=== PATIENT | female | born 1940 ===

== ENCOUNTER 2018-09-06 09:57 | Outpatient (CLI) | payer OTHER | END 2018-09-06 09:58 | disposition home or self-care (01) | LOC: SONOGRAMA 09:57 | DX: E04.2 Nontoxic multinodular goiter (principal) ==

== ENCOUNTER 2018-11-17 08:53 | Outpatient (CLI) | payer OTHER | END 2018-11-17 08:55 | disposition home or self-care (01) | LOC: SONOGRAMA 08:53 | DX: E04.1 Nontoxic single thyroid nodule (principal) ==

== ENCOUNTER 2019-02-28 08:13 | Outpatient (CLI) | payer OTHER | END 2019-02-28 08:15 | disposition home or self-care (01) | LOC: SONOGRAMA 08:13 | DX: E04.1 Nontoxic single thyroid nodule (principal) ==

== ENCOUNTER 2022-10-12 08:31 | Outpatient (CLI) | payer OTHER | END 2022-10-12 08:34 | disposition home or self-care (01) | LOC: SONOGRAMA 08:31 | PROVIDERS: ATTEND Pathology Anatomic Pathology & Clinical Pathology | DX: E04.2 Nontoxic multinodular goiter (principal) ==